=== PATIENT | male | born 1955 | race Caucasian/White ===

== ENCOUNTER 2017-07-03 11:32 | Day surgery (SDC) | payer BC ==
[2017-07-03] MEDS ORDERED: D5 LR 1000 ML 1,000 ML IV ONE (11:37)
[2017-07-03] MEDS ORDERED: DIPRIVAN VIAL 10 ML ONE ×3 (13:07→13:26)
[2017-07-03 14:05] VITALS: BP 127/84
== END 2017-07-03 14:07 | disposition home or self-care (01) ==
LOC: SURG1 11:32
PROVIDERS: ATTEND Internal Medicine Gastroenterology
PROC: 0DBH8ZX Excision of Cecum, Via Natural or Artificial Opening Endoscopic, Diagnostic (ICD-10-PCS; principal; 2017-07-03 18:30)
PROC: 0DJD8ZZ Inspection of Lower Intestinal Tract, Via Natural or Artificial Opening Endoscopic (ICD-10-PCS; principal; 2017-07-03 18:30)
PROC: 0DBK8ZX Excision of Ascending Colon, Via Natural or Artificial Opening Endoscopic, Diagnostic (ICD-10-PCS; principal; 2017-07-03 18:30)
DX: K64.0 First degree hemorrhoids (principal); Z86.010 Personal history of colon polyps; D12.2 Benign neoplasm of ascending colon; D12.0 Benign neoplasm of cecum
CPT/HCPCS: J3490; J7120